=== PATIENT | male | born 1990 | race Hispanic/Latino ===

== ENCOUNTER 2022-04-16 02:48 | Emergency (ER) | payer SELFPAY ==
[~2022-04-16] VITALS: Ht 177.8 cm; Wt 83.9 kg
[2022-04-16] MEDS ORDERED: ACETAMINOPHEN-1 EAC4 PO (04:19)
[2022-04-17] MEDS ORDERED: BACTRIM 400-801 EACH PO (11:09)
[2022-04-17] MEDS ORDERED: ADVIL200 MG PO (11:09)
== END 2022-04-16 04:32 | disposition home or self-care (01) ==
LOC: ER 02:54
DX: L03.011 Cellulitis of right finger (principal)
CPT/HCPCS: 99283

== ENCOUNTER → 2022-04-18 | Day surgery (SDC) | payer SELFPAY ==
[~2022-04-18] MED LIST: ACETAMINOPHEN-1 EAC4 PO; ADVIL200 MG PO; BACTRIM 400-801 EACH PO; BUPIVACAINE 0.25% 30ML SDV ONE; DEXAMETHASONE SOD PHOS INJ 4 MG/ML SDV ONE; KETOROLAC TROMETHAMINE 30 MG/ML VIAL ONE; LIDOCAINE HCL 2% LOCAL INJ 5 ML SDV VIAL INJ ONE; MUPIROCIN 2% OINT 22 GM TUBE ONE; ONDANSETRON HCL INJ 2MG/ML 2ML 2 MG/ML VIAL ONE; POVIDONE IODINE 0.05% 0.05 % ML PO ONE; PROPOFOL IV EMULSION 10 MG/ML 20 ML VIAL ONE; SEVOFLURANE INHAL SOLN 250 ML PEN BTL ONE
[2022-04-18 11:45] VITALS: BP 122/79
== END | disposition home or self-care (01) ==
LOC: OR 06:19
PROVIDERS: ATTEND Plastic Surgery
DX: S67.190A Crushing injury of right index finger, initial encounter (principal); S61.310A Laceration without foreign body of right index finger with damage to nail, initial encounter; L08.9 Local infection of the skin and subcutaneous tissue, unspecified; W23.0XXA Caught, crushed, jammed, or pinched between moving objects, initial encounter; Y93.89 Activity, other specified; Z01.812 Encounter for preprocedural laboratory examination; Z20.822 Contact with and (suspected) exposure to COVID-19
CPT/HCPCS: 0223U; 11760; 36415; 87071; 87075; 87186; 87205; J0690; J1100; J1885; J2001; J2405